=== PATIENT | female | born 1980 | race African-American/Black ===

== ENCOUNTER → 2017-09-15 | Outpatient (CLI) | payer MEDICAID ==
[2017-09-15 11:32] LABS: ABSOLUTE LYMPHOCYTES (AUTO) 0.9 10^3/uL (0.5-4.7); ABSOLUTE MONOCYTES (AUTO) 0.3 10^3/uL (0.1-1.4); ABSOLUTE NEUT (AUTO) 2.3 10^3/uL (1.7-8.2); BASOPHILS % (AUTO) 0.8 % (0-2); EOSINOPHILS % (AUTO) 1.1 % (0-6); HEMATOCRIT 36.9 % (36.0-47.0); LYMPHOCYTES % (AUTO) 25.5 % (13-45); MEAN CORPUSCULAR HEMOGLOBIN 26.3 pg (27.0-33.4); MEAN CORPUSCULAR HGB CONC 32.6 g/dL (32.0-36.0); MEAN CORPUSCULAR VOLUME 81 fl (80-97); MONOCYTES % (AUTO) 9.3 % (3-13); RED BLOOD COUNT 4.57 10^6/uL (3.72-5.28); RED CELL DISTRIBUTION WIDTH 14.3 % (11.5-14.0); SEGMENTED NEUTROPHILS % (AUTO) 63.3 % (42-78); TOTAL CELLS COUNTED % (AUTO) 100 %; WHITE BLOOD COUNT 3.7 10^3/uL (4.0-10.5)
[2017-09-15 11:36] LABS: PLATELET COUNT 76 10^3/uL (150-450)
[2017-09-15 11:44] LABS: ALANINE AMINOTRANSFERASE 25 U/L (9-52); ALBUMIN 4.6 g/dL (3.5-5.0); ALKALINE PHOSPHATASE 105 U/L (38-126); ANION GAP 11 (5-19); ASPARTATE AMINO TRANSFERASE 21 U/L (14-36); BILIRUBIN,DIRECT 0.1 mg/dL (0.0-0.4); BILIRUBIN,TOTAL 0.5 mg/dL (0.2-1.3); BLOOD UREA NITROGEN 11 mg/dL (7-20); CALCIUM 9.7 mg/dL (8.4-10.2); CARBON DIOXIDE 26 mmol/L (22-30); CHLORIDE 104 mmol/L (98-107); CHOLESTEROL 166.68 mg/dL (0-200); GLUCOSE 80 mg/dL (75-110); POTASSIUM 3.9 mmol/L (3.6-5.0); SODIUM 140.7 mmol/L (137-145); TOTAL PROTEIN 8.7 g/dL (6.3-8.2); TRIGLYCERIDES 131 mg/dL (<150)
[2017-09-15 11:55] LABS: DIRECT LDL 81 mg/dL (<100)
== END ==
LOC: LAB 11:06
PROVIDERS: ATTEND Family Medicine Geriatric Medicine
DX: M32.9 Systemic lupus erythematosus, unspecified (principal); M06.9 Rheumatoid arthritis, unspecified; E66.9 Obesity, unspecified; Z79.899 Other long term (current) drug therapy
CPT/HCPCS: 36415; 80053; 80061; 84443; 85025

== ENCOUNTER → 2018-06-02 | Outpatient (CLI) | payer OTHER ==
[2018-06-02 11:11] LABS: ABSOLUTE LYMPHOCYTES (AUTO) 0.8 10^3/uL (0.5-4.7); ABSOLUTE MONOCYTES (AUTO) 0.4 10^3/uL (0.1-1.4); ABSOLUTE NEUT (AUTO) 1.4 10^3/uL (1.7-8.2); BASOPHILS % (AUTO) 0.6 % (0-2); EOSINOPHILS % (AUTO) 1.1 % (0-6); HEMATOCRIT 34.3 % (36.0-47.0); HEMOGLOBIN 11.4 g/dL (12.0-15.5); LYMPHOCYTES % (AUTO) 30.1 % (13-45); MEAN CORPUSCULAR HEMOGLOBIN 25.9 pg (27.0-33.4); MEAN CORPUSCULAR HGB CONC 33.3 g/dL (32.0-36.0); MEAN CORPUSCULAR VOLUME 78 fl (80-97); MONOCYTES % (AUTO) 13.8 % (3-13); RED BLOOD COUNT 4.39 10^6/uL (3.72-5.28); RED CELL DISTRIBUTION WIDTH 15.3 % (11.5-14.0); SEGMENTED NEUTROPHILS % (AUTO) 54.4 % (42-78); TOTAL CELLS COUNTED % (AUTO) 100 %; WHITE BLOOD COUNT 2.6 10^3/uL (4.0-10.5)
[2018-06-02 11:25] LABS: ALANINE AMINOTRANSFERASE 10 U/L (9-52); ALKALINE PHOSPHATASE 87 U/L (38-126); ANION GAP 10 (5-19); ASPARTATE AMINO TRANSFERASE 20 U/L (14-36); BILIRUBIN,DIRECT 0.1 mg/dL (0.0-0.4); BILIRUBIN,TOTAL 0.5 mg/dL (0.2-1.3); BLOOD UREA NITROGEN 8 mg/dL (7-20); CALCIUM 9.3 mg/dL (8.4-10.2); CARBON DIOXIDE 24 mmol/L (22-30); CHLORIDE 105 mmol/L (98-107); CHOLESTEROL 135.78 mg/dL (0-200); GLUCOSE 76 mg/dL (75-110); POTASSIUM 4.5 mmol/L (3.6-5.0); SODIUM 139.2 mmol/L (137-145); TRIGLYCERIDES 101 mg/dL (<150)
[2018-06-02 11:33] LABS: PLATELET COUNT 43 10^3/uL (150-450)
[2018-06-02 11:36] LABS: DIRECT LDL 64 mg/dL (<100)
== END ==
LOC: OD 10:07
PROVIDERS: ATTEND Family Medicine Geriatric Medicine
DX: M06.9 Rheumatoid arthritis, unspecified (principal); E78.5 Hyperlipidemia, unspecified; E55.9 Vitamin D deficiency, unspecified; M32.9 Systemic lupus erythematosus, unspecified; Z79.899 Other long term (current) drug therapy
CPT/HCPCS: 36415; 80053; 80061; 82306; 84443; 85025

== ENCOUNTER → 2018-06-28 | Outpatient (CLI) | payer OTHER ==
[2018-06-28 13:36] LABS: ABSOLUTE RETICS # 0.049 10^6/uL (0.028-0.122)
[2018-06-28 13:56] LABS: IRON(TIBC) 75.5 ug/dL (37-170)
[2018-06-28 14:38] LABS: FERRITIN 8.72 ng/mL (6.2-137.0)
[2018-06-29 11:25] LABS: ABSOLUTE LYMPHOCYTES (AUTO) 0.7 10^3/uL (0.5-4.7); ABSOLUTE MONOCYTES (AUTO) 0.3 10^3/uL (0.1-1.4); ABSOLUTE NEUT (AUTO) 1.8 10^3/uL (1.7-8.2); BASOPHILS % (AUTO) 0.6 % (0-2); HEMATOCRIT 35.4 % (36.0-47.0); HEMOGLOBIN 11.7 g/dL (12.0-15.5); LYMPHOCYTES % (AUTO) 25.5 % (13-45); MEAN CORPUSCULAR HEMOGLOBIN 26.4 pg (27.0-33.4); MEAN CORPUSCULAR HGB CONC 33.1 g/dL (32.0-36.0); MEAN CORPUSCULAR VOLUME 80 fl (80-97); MONOCYTES % (AUTO) 9.5 % (3-13); RED BLOOD COUNT 4.44 10^6/uL (3.72-5.28); RED CELL DISTRIBUTION WIDTH 15.8 % (11.5-14.0); SEGMENTED NEUTROPHILS % (AUTO) 63.4 % (42-78); TOTAL CELLS COUNTED % (AUTO) 100 %; WHITE BLOOD COUNT 2.8 10^3/uL (4.0-10.5)
[2018-06-29 11:51] LABS: PLATELET COUNT 58 10^3/uL (150-450)
[2018-06-29 15:38] LABS: HGB A 97.3 % (96.4-98.8); HGB A2 2.7 % (1.8-3.2); HGB SOLUBILITY RESULT Negative (Negative)
== END ==
LOC: OD 11:53
PROVIDERS: ATTEND Family Medicine Geriatric Medicine
DX: M06.9 Rheumatoid arthritis, unspecified (principal); D50.9 Iron deficiency anemia, unspecified
CPT/HCPCS: 36415; 82272; 82728; 83020; 83540; 83550; 84466; 85025; 85045

== ENCOUNTER 2018-08-28 18:12 | Emergency (ER) | payer OTHER ==
--- NOTE | 2018-08-28 18:45 | ER Document Report ---
ED Medical Screen (RME) - General Chief Complaint: Abnormal Lab Results Stated Complaint: ABNORMAL LABS Time Seen by Provider: 08/28/18 18:42 Notes: 37-year-old female patient past history of lupus, give 11-day history of easy bruising and petechiae. She had outpatient lab work done today by her PCP, and was found to have a platelet count of 9,000. Her mother has ITP and TTP diagnoses. This patient has had platelet counts in the 40K's in the past, but never this low. Her last menstrual period was on 08/22/2018, is now just stopping. She states it was much heavier than normal. She is not ill-appearing. 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 I have greeted and performed a rapid initial assessment of this patient. A comprehensive ED assessment and evaluation of the patient, analysis of test results and completion of the medical decision making process will be conducted by additional ED providers. TRAVEL OUTSIDE OF THE [place] IN LAST 30 DAYS: No - Related Data Allergies/Adverse Reactions: amoxicillin [Amoxicillin] Allergy (Verified 07/29/14 10:26) amoxicillin trihydrate [From Augmentin] Allergy (Verified 07/29/14 10:26) Potassium Clavulanate * [From Augmentin] Allergy (Verified 07/29/14 10:26) Past Medical History Pulmonary Medical History: Reports: Hx Bronchitis, Hx Pneumonia Renal/ Medical History: Reports: Hx Ovarian Cysts GI Medical History: Reports: Hx Gastroesophageal Reflux Disease Musculoskeltal Medical History: Reports Hx Fibromyalgia Psychiatric Medical History: Denies: Hx Depression Past Surgical History: Reports: Hx Abdominal Surgery - 2 hernia, Hx Section, Hx Herniorrhaphy - Immunizations Immunizations up to date: Yes Hx Diphtheria, Pertussis, Tetanus Vaccination: Yes Physical Exam - Vital signs Vitals: Resp 16 08/28/18 18:39 Course - Vital Signs Vital signs: Temp Pulse Resp BP Pulse Ox 08/28/18 18:39 Doctor's Discharge - Discharge Referrals: SONIA AKINS MD [Primary Care Provider] - Follow up as needed
[2018-08-28 19:25] LABS: APPEARANCE,URINE CLEAR; BILIRUBIN,URINE NEGATIVE (NEGATIVE); COLOR,URINE YELLOW; GLUCOSE, URINE NEGATIVE (NEGATIVE); KETONES,URINE NEGATIVE (NEGATIVE); LEUKOCYTE ESTERASE,URINE NEGATIVE (NEGATIVE); NITRITE,URINE NEGATIVE (NEGATIVE); PROTEIN,URINE NEGATIVE (NEGATIVE); URINE SPECIFIC GRAVITY 1.025; UROBILINOGEN,URINE NEGATIVE mg/dL (<2.0)
[2018-08-28 19:27] LABS: ABSOLUTE LYMPHOCYTES (AUTO) 1.2 10^3/uL (0.5-4.7); ABSOLUTE MONOCYTES (AUTO) 0.3 10^3/uL (0.1-1.4); ABSOLUTE NEUT (AUTO) 1.6 10^3/uL (1.7-8.2); BASOPHILS % (AUTO) 0.6 % (0-2); EOSINOPHILS % (AUTO) 0.6 % (0-6); HEMATOCRIT 33.4 % (36.0-47.0); HEMOGLOBIN 10.8 g/dL (12.0-15.5); MEAN CORPUSCULAR HEMOGLOBIN 26.1 pg (27.0-33.4); MEAN CORPUSCULAR HGB CONC 32.4 g/dL (32.0-36.0); MEAN CORPUSCULAR VOLUME 81 fl (80-97); MONOCYTES % (AUTO) 10.1 % (3-13); RED BLOOD COUNT 4.15 10^6/uL (3.72-5.28); RED CELL DISTRIBUTION WIDTH 14.3 % (11.5-14.0); SEGMENTED NEUTROPHILS % (AUTO) 50.7 % (42-78); TOTAL CELLS COUNTED % (AUTO) 100 %; WHITE BLOOD COUNT 3.1 10^3/uL (4.0-10.5)
[2018-08-28 19:29] LABS: PROTHROMBIN TIME 13.7 SEC (11.4-15.4)
[2018-08-28 19:30] LABS: FIBRINOGEN 248 mg/dL (209-497)
[2018-08-28 19:35] LABS: PLATELET COUNT 11 10^3/uL (150-450)
[2018-08-28 19:37] LABS: ALANINE AMINOTRANSFERASE 26 U/L (9-52); ALBUMIN 4.6 g/dL (3.5-5.0); ALKALINE PHOSPHATASE 84 U/L (38-126); ANION GAP 8 (5-19); ASPARTATE AMINO TRANSFERASE 21 U/L (14-36); BILIRUBIN,DIRECT 0.1 mg/dL (0.0-0.4); BILIRUBIN,TOTAL 0.4 mg/dL (0.2-1.3); BLOOD UREA NITROGEN 12 mg/dL (7-20); CALCIUM 9.4 mg/dL (8.4-10.2); CARBON DIOXIDE 26 mmol/L (22-30); CHLORIDE 107 mmol/L (98-107); GLUCOSE 72 mg/dL (75-110); POTASSIUM 3.7 mmol/L (3.6-5.0); SODIUM 140.9 mmol/L (137-145); TOTAL PROTEIN 8.3 g/dL (6.3-8.2)
[2018-08-28 20:20] VITALS: BP 102/59
[2018-08-28] MEDS ORDERED: PREDNISONE 20 MG TABLET PO ONE (20:26)
--- NOTE | 2018-08-28 20:26 | ER Document Report ---
ED General - General Chief Complaint: Abnormal Lab Results Stated Complaint: ABNORMAL LABS Time Seen by Provider: 08/28/18 18:42 Notes: Patient is a 37-year-old female with a past medical history of lupus, currently taking Plaquenil and CellCept presents due to concerns of thrombocytopenia and a progressively notable rash. Patient states that she has been having progressive appearance of petechiae and purpura over her body over the last 10-14 days. She was seen by her primary care physician today who did laboratories, subsequently referred her to the emergency department due to concerns of severe thrombocytopenia. Patient denies any history of similar nodes in the past. Does state that she has been being followed by her primary doctor for downtrending cell counts. Denies any additional new symptoms other than feeling somewhat fatigued although she notes this is relatively normal for her. Nothing improves or worsens that symptom. No fever, headache, confusion, weakness, numbness, abdominal pain, or decreased urination. TRAVEL OUTSIDE OF THE [place] IN LAST 30 DAYS: No - Related Data Allergies/Adverse Reactions: amoxicillin [Amoxicillin] Allergy (Verified 08/28/18 19:15) amoxicillin trihydrate [From Augmentin] Allergy (Verified 08/28/18 19:15) Potassium Clavulanate * [From Augmentin] Allergy (Verified 08/28/18 19:15) Past Medical History - General Information source: Patient - Social History Smoking Status: Never Smoker Chew tobacco use (# tins/day): No Frequency of alcohol use: None Drug Abuse: None Lives with: Spouse/Significant other Family History: Other - Mother has lupus Patient has suicidal ideation: No Patient has homicidal ideation: No Pulmonary Medical History: Reports: Hx Bronchitis, Hx Pneumonia Renal/ Medical History: Reports: Hx Ovarian Cysts. Denies: Hx Peritoneal Dialysis GI Medical History: Reports: Hx Gastroesophageal Reflux Disease Musculoskeletal Medical History: Reports Hx Fibromyalgia Psychiatric Medical History: Denies: Hx Depression Past Surgical History: Reports: Hx Abdominal Surgery - 2 hernia, Hx Section, Hx Herniorrhaphy - Immunizations Immunizations up to date: Yes Hx Diphtheria, Pertussis, Tetanus Vaccination: Yes Review of Systems - Review of Systems Notes: Constitutional: Negative for fever. HENT: Negative for sore throat. Eyes: Negative for visual changes. Cardiovascular: Negative for chest pain. Respiratory: Negative for shortness of breath. Gastrointestinal: Negative for abdominal pain, vomiting or diarrhea. Genitourinary: Negative for dysuria. Musculoskeletal: Negative for back pain. Skin: Positive for rash. Neurological: Negative for headaches, weakness or numbness. 10 point ROS negative except as marked above and in HPI. Physical Exam - Vital signs Vitals: Resp 16 08/28/18 18:39 Interpretation: Normal Notes: PHYSICAL EXAMINATION: GENERAL: Well-appearing, well-nourished and in no acute distress. HEAD: Atraumatic, normocephalic. EYES: Pupils equal round and reactive to light, extraocular movements intact, sclera anicteric, conjunctiva are normal. ENT: nares patent, oropharynx clear without exudates. Moist mucous membranes. NECK: Normal range of motion, supple without lymphadenopathy LUNGS: Breath sounds clear to auscultation bilaterally and equal. No wheezes rales or rhonchi. HEART: Regular rate and rhythm without murmurs ABDOMEN: Soft, nontender, normoactive bowel sounds. No guarding, no rebound. No masses appreciated. EXTREMITIES: Normal range of motion, no pitting or edema. No cyanosis. NEUROLOGICAL: Face symmetric. Tongue protrudes midline. Extraocular motions intact. Pupils are 2 mm and equally reactive. Normal speech, normal gait. 5 out of 5 strength in both the distal and proximal upper and lower extremities bilaterally. Sensation is grossly intact throughout. Finger to nose testing normal. Pronator drift normal. PSYCH: Normal mood, normal affect. SKIN: Warm, Dry, normal turgor, scattered petechiae and purpura over the bilateral upper extremities, chest, back and neck. 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 The patient has no renal dysfunction, neurologic deficits, no fever, otherwise extremely well in appearance. Exam is notable only for scattered petechia purpura. Platelets are critically low at 11, mild anemia, labs otherwise unremarkable. I did discuss this case with our dry press operator helper on-call Dr. Sanz who has requested that a peripheral smear be placed for her review tomorrow to definitively exclude any schistocytes which are not noted on the initial manual I have spoken directly to a concrete mixing plant laborer in hematology named kenn bowen states this will be completed. The patient will be started on steroids 1 mg/kg. She will follow-up with Dr. Fernandes within the next 1 week. I did also discuss this case with the patient engineer conductor canceling and cutting control clerk from [facility] Dr. Stephens. She is in agreement with this management plan. At this time will discharge with return precautions and follow-up recommendations. Verbal discharge instructions given a the bedside and opportunity for questions given. Medication warnings reviewed. Patient is in agreement with this plan and has verbalized understanding of return precautions and the need for follow-up. - Vital Signs Vital signs: Temp Pulse Resp BP Pulse Ox 97.8 F 79 16 102/59 L 100 08/28/18 20:19 08/28/18 20:19 08/28/18 20:19 08/28/18 20:19 08/28/18 20:19 - Laboratory Result Diagrams: 08/28/18 19:00 08/28/18 19:00 Laboratory results interpreted by me: 08/28/18 08/28/18 08/28/18 19:00 19:00 20:50 WBC 3.1 L Hgb 10.8 L Hct 33.4 L MCH 26.1 L RDW 14.3 H Plt Count 11 L* Absolute Neutrophils 1.6 L Glucose 72 L Lactate Dehydrogenase 298 H Total Protein 8.3 H Discharge - Discharge Clinical Impression: Thrombocytopenia, Idiopathic thrombocytopenia purpura Condition: Stable Disposition: HOME, SELF-CARE Additional Instructions: Based on your labs and history we suspect that 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 You need to follow-up with hematology within the next 1 week. Please take the steroids as directed until you follow-up with hematology. Do not change any of your other medications. Return if you develop fever, weakness, numbness, confusion, severe abdominal pain, vomiting, decreased urination, began bleeding more heavily from your vagina, began bleeding from any other orifice, or any other symptoms that are worrisome to you. Prescriptions: Prednisone [Deltasone 20 mg Tablet] 3 tab PO DAILY 7 Days tablet Referrals: SONIA AKINS MD [Primary Care Provider] - Follow up as needed YARI SANZ MD [ACTIVE STAFF] - Follow up in 1 week
== END 2018-08-28 20:32 | disposition home or self-care (01) ==
LOC: ER 18:12
DX: D69.3 Immune thrombocytopenic purpura (principal); Z88.0 Allergy status to penicillin
CPT/HCPCS: 99283; 86900; 86901; 36415; 86850; 83615; 85025; 85384; 85362; 85610; 85730; 80053; 81001; J7512

== ENCOUNTER → 2018-08-28 | Outpatient (CLI) | payer OTHER ==
[2018-08-28 13:54] LABS: ABSOLUTE LYMPHOCYTES (AUTO) 0.7 10^3/uL (0.5-4.7); ABSOLUTE MONOCYTES (AUTO) 0.2 10^3/uL (0.1-1.4); ABSOLUTE NEUT (AUTO) 1.8 10^3/uL (1.7-8.2); BASOPHILS % (AUTO) 0.6 % (0-2); EOSINOPHILS % (AUTO) 0.2 % (0-6); HEMATOCRIT 33.1 % (36.0-47.0); HEMOGLOBIN 10.9 g/dL (12.0-15.5); LYMPHOCYTES % (AUTO) 25.3 % (13-45); MEAN CORPUSCULAR HEMOGLOBIN 26.3 pg (27.0-33.4); MEAN CORPUSCULAR VOLUME 80 fl (80-97); MONOCYTES % (AUTO) 7.9 % (3-13); RED BLOOD COUNT 4.15 10^6/uL (3.72-5.28); RED CELL DISTRIBUTION WIDTH 14.1 % (11.5-14.0); TOTAL CELLS COUNTED % (AUTO) 100 %; WHITE BLOOD COUNT 2.8 10^3/uL (4.0-10.5)
[2018-08-28 14:09] LABS: ALANINE AMINOTRANSFERASE 17 U/L (9-52); ALBUMIN 4.5 g/dL (3.5-5.0); ALKALINE PHOSPHATASE 76 U/L (38-126); ANION GAP 7 (5-19); ASPARTATE AMINO TRANSFERASE 21 U/L (14-36); BILIRUBIN,DIRECT 0.2 mg/dL (0.0-0.4); BILIRUBIN,TOTAL 0.6 mg/dL (0.2-1.3); BLOOD UREA NITROGEN 12 mg/dL (7-20); CALCIUM 9.6 mg/dL (8.4-10.2); CARBON DIOXIDE 27 mmol/L (22-30); CHLORIDE 106 mmol/L (98-107); GLUCOSE 82 mg/dL (75-110); SODIUM 139.5 mmol/L (137-145); TOTAL PROTEIN 8.1 g/dL (6.3-8.2)
[2018-08-28 14:28] LABS: OVALOCYTES 1+; PLATELET COMMENT DECREASED; POIKILOCYTOSIS SLIGHT
[2018-08-28 14:29] LABS: PLATELET COUNT 9 10^3/uL (150-450)
[2018-08-29 16:16] LABS: PATH REVIEW PATHOLOGIST REVIEWED
== END ==
LOC: OD 12:24
PROVIDERS: ATTEND Internal Medicine
DX: R10.9 Unspecified abdominal pain (principal); D64.9 Anemia, unspecified; E53.8 Deficiency of other specified B group vitamins
CPT/HCPCS: 36415; 80053; 82607; 82746; 85025

== ENCOUNTER → 2019-08-03 | Outpatient (CLI) | payer SELFPAY ==
--- NOTE | 2019-08-03 14:04 | RADIOLOGY REPORT (SQ) ---
EXAM DESCRIPTION: CHEST PA/LATERAL COMPLETED DATE/TIME: 08/03/2019 1:49 pm REASON FOR STUDY: BRONCHITIS, UNSPECIFIED ASTHMA COMPARISON: PA and lateral views of the chest from 08/05/2015. EXAM PARAMETERS: NUMBER OF VIEWS: two views TECHNIQUE: PA and lateral views of the chest were obtained. RADIATION DOSE: NA LIMITATIONS: none FINDINGS: LUNGS AND PLEURA: No consolidation, pleural effusion or pneumothorax. MEDIASTINUM AND HILAR STRUCTURES: No mediastinal or hilar contour abnormality. HEART AND VASCULAR STRUCTURES: The cardiac silhouette and pulmonary vasculature are within normal chan its. BONES: No acute findings. HARDWARE: None in the chest. OTHER: No other finding. IMPRESSION: No acute cardiopulmonary process. TECHNICAL DOCUMENTATION: JOB ID: [id number] [employer]- All Rights Reserved Reading location - IP/workstation name: [email or web address]
== END ==
LOC: OD 13:32
PROVIDERS: ATTEND Family Medicine Geriatric Medicine
DX: J45.909 Unspecified asthma, uncomplicated (principal)
CPT/HCPCS: 71046